=== PATIENT | male | born 1950 | race Caucasian/White ===

== ENCOUNTER → 2020-06-08 | Outpatient (CLI) | payer MEDICARE, OTHER ==
[2020-05-18 15:00] VITALS: BP 155/72
[~2020-06-08] MED LIST: ASPI81TA59 PO; ATOR80TA72 PO; GABA300C18 PO; GABA600T7 PO; METF10007 PO; METF500T16 PO; METO-239 PO; METO-247 PO; MULT-245 PO; RAMI5CAP50 PO
[2020-06-08 13:44] LABS: ALBUMIN 3.6 g/dL (3.4-5.0); DIRECT BILIRUBIN 0.3 mg/dL (0.0-0.2); TOTAL BILIRUBIN 0.6 mg/dL (0.2-1.0); TOTAL PROTEIN 7.3 g/dL (6.4-8.2)
== END ==
LOC: SURGPAT 12:39
PROVIDERS: ATTEND Surgery
DX: Z01.818 Encounter for other preprocedural examination (principal); K80.20 Calculus of gallbladder without cholecystitis without obstruction; Z20.828 Contact with and (suspected) exposure to other viral communicable diseases
CPT/HCPCS: 80076; U0003

== ENCOUNTER 2020-06-15 09:11 | Day surgery (SDC) | payer MEDICARE, OTHER ==
[~2020-06-15] VITALS: Ht 180.3 cm; Wt 101.0 kg
[~2020-06-15 09:11] MED LIST changes: +HYDROmorphone 2 MG/ML VIAL IV PRN; +IV RINGERS,LACTATED 1000ML 1,000 ML IV SCH; +LIDOCAINE 1% PF 2 ML VIAL. ID PRN; +MORPHINE SULFATE 2 MG/ML VIAL. IV PRN; +ONDANSETRON PF 4 MG/2 ML VIAL. IV PRN; +PROCHLORPERAZINE 10 MG/2 ML VIAL. IV PRN; +fentaNYL PF VIAL 100 MCG/2 ML VIAL IV PRN
[2020-06-15] MEDS ORDERED: RAMI5CAP50 PO (09:30)
[2020-06-15 09:47] LABS: BASO % 1 % (0-3); EOS # 0.2 x10^3/uL (0.0-0.7); EOS % 2 % (0-3); HEMATOCRIT 37.8 % (39.0-53.0); HEMOGLOBIN 12.6 g/dL (13.0-17.5); LYMPH # 1.6 x10^3/uL (1.0-4.8); LYMPH % 19 % (24-48); MEAN CORPUSCULAR HEMOGLOBIN 31 pg (25-35); MEAN CORPUSCULAR HGB CONC 33 g/dL (31-37); MEAN CORPUSCULAR VOLUME 94 fL (79-100); MONO # 0.8 x10^3/uL (0.0-1.1); MONO % 9 % (0-9); NEUT # 5.8 x10^3/uL (1.8-7.7); NEUT % 69 % (31-73); PLATELET COUNT 208 x10^3/uL (140-400); RED BLOOD COUNT 4.02 x10^6/uL (4.30-5.70); RED CELL DISTRIBUTION WIDTH 15.1 % (11.5-14.5); WHITE BLOOD COUNT 8.5 x10^3/uL (4.0-11.0)
[2020-06-15] MEDS: INSULIN LISPRO 100 UNIT/ML 3ML VIAL for OP,RR ONLY. SQ PRN ×2 (09:48→11:51)
[2020-06-15 09:53] LABS: POTASSIUM 4.2 mmol/L (3.5-5.1)
[2020-06-15] MEDS ORDERED: ROCURONIUM 50 MG/5 ML VIAL. ONE (11:19)
[2020-06-15] MEDS ORDERED: fentaNYL PF VIAL 250 MCG/5 ML VIAL ONE (11:19)
[2020-06-15] MEDS ORDERED: INSULIN LISPRO 100 UNIT/ML 3ML VIAL for OP,RR ONLY. SQ ONE ×2 (12:00)
[2020-06-15] MEDS ORDERED: PROPOFOL 10 MG/ML (20ML) VIAL. IV ONE (12:11)
[2020-06-15] MEDS ORDERED: LIDOCAINE 2% PF 5 ML VIAL. ONE (12:11)
[2020-06-15] MEDS ORDERED: ONDANSETRON PF 4 MG/2 ML VIAL. ONE (12:11)
[2020-06-15] MEDS ORDERED: DEXAMETHASONE SOD PHOS 4 MG/ML VIAL ONE (12:11)
[2020-06-15] MEDS ORDERED: SEVOFLURANE > 120 MINUTES. IH ONE (12:11)
[2020-06-15] MEDS ORDERED: BUPIVACAINE MPF 0.5% 30 ML VIAL. ONE (12:20)
[2020-06-15] MEDS ORDERED: IOHEXOL 300 MG/ML 50 ML VIAL. ONE (12:20)
[2020-06-15] MEDS ORDERED: SURGICEL HEMOSTAT 4X8 EACH. ONE (12:20)
[2020-06-15] MEDS ORDERED: 0.9 % SODIUM CHLORIDE 20 ML VIAL. IJ ONE (12:32)
[2020-06-15] MEDS ORDERED: GLYCOPYRROLATE 1 MG/5 ML VIAL. ONE (12:47)
[2020-06-15] MEDS ORDERED: NEOSTIGMINE METHYLSULFATE 5 MG/5 ML SYRINGE. ONE (12:57)
[2020-06-15] MEDS ORDERED: ROCURONIUM 100 MG/10 ML VIAL. ONE (13:09)
[2020-06-15] MEDS ORDERED: VASOPRESSIN 20 UNIT/ML VIAL. ONE (13:28)
--- NOTE | 2020-06-15 14:13 | RAD ---
EXAM: INTRAOPERATIVE CHOLANGIOGRAM. HISTORY: Gallbladder disease. Intraoperative cholangiogram with cholecystectomy. COMPARISON: None. FINDINGS: Poor fluoroscopic images are obtained intraoperatively during injection of the cystic duct remnant after cholecystectomy. There are no filling defects to suggest retained stones. The common duct is not dilated. Fluoroscopy time 46 seconds. IMPRESSION: 1. No evidence of retained stones. Electronically signed by: Tianna Ochoa MD (06/15/2020 2:11 PM) [id number]
[2020-06-15] MEDS ORDERED: SUGAMMADEX SODIUM 200 MG/2 ML VIAL. IVP ONE (14:30)
--- NOTE | 2020-06-15 14:30 | PDOC4 ---
Operative Note Operative Note Operative Note: Preoperative Diagnosis: Calculus cholecystitis, abnormal liver testing Postoperative Diagnosis: Same Procedure: Laparoscopic cholecystectomy with intraoperative cholangiogram, Marcelino- Cut liver biopsy Surgeons: Kamaljit Shoemaker Custom: Duncan VIVEROS Anesthesia: Gen. Estimated Blood Loss: 100 mL Specimen: Gallbladder, liver biopsy to pathology Drains: None Complications: None Indications: The patient is a 70 year old male who was previously admitted with abnormal liver testing and gallstones. Surgical treatment was offered by means of a laparoscopic cholecystectomy. The risks of surgery were discussed which include bleeding, infection, bile duct injury, bile leak, pain, the potential for additional surgeries or procedures. The patient understands and would like to proceed. Description: The patient was taken to the operating room and laid supine on the operating table. General anesthesia was performed. The abdomen was prepped with ChloraPrep and draped in a standard surgical fashion. A small infraumbilical incision was made with a scalpel. The Veress needle was then inserted and a pneumoperitoneum was then created. A 5 mm trocar was then inserted and the laparoscope was introduced. In the upper midabdomen a 5 mm trocar was inserted and in the right upper quadrant one 2.3 mm mini lap grasper and one 5 mm trocar were inserted. With a Marcelino-cut needle two separate biopsies were taken from the right lobe of the liver. The specimens were sent to pathology. The gallbladder was retracted cephalad. The cystic duct was dissected free from surrounding tissues. One clip was placed on the duct near the gallbladder junction. An opening was made in the duct and a cholang iocatheter placed within and secured with a clip. Using contrast dye and fluoroscopy an intraoperative cholangiogram was performed that appeared unremarkable. The clip and catheter were then withdrawn. Three clips were placed on the cystic duct and it was divided. The cystic artery was then identified, dissected free, doubly clipped and divided as well. The gallbladder was then mobilized away from the liver with cautery. The umbilical 5 millimeter trocar was exchanged for an 11 millimeter trocar. The gallbladder was then placed in an endoscopic bag and extracted at the umbilical trocar site. The fascia there was closed with an 0 Vicryl suture. All blood and irrigation fluid was suctioned and hemostasis was good. The remaining ports were removed and the pneumoperitoneum was relieved. The skin incisions were injected with half percent Marcaine with epinephrine, and all were closed using 4-0 Monocryl suture. Steri-Strips and dressings were then applied. The patient tolerated the procedure well and was sent to the recovery room in stable condition. At the end of the case all counts were correct. PAULA NÚÑEZ MD Jun 15, 2020 14:30
--- NOTE | 2020-06-15 14:33 | DISCH ---
DISCHARGE INSTRUCTIONS Condition on Discharge Condition on Discharge: Stable Activity After Discharge Activity Instructions for Disc: Other, see below (no lifting over 20 lbs X 2 weeks) Diet after Discharge Diet after Discharge: Regular Wound Incision Care Wound/Incision Care: Other, see below (may remove bandaids tomorrow and shower) Follow-Up Follow up with: Dr Núñez in 2 weeks in office, call for appointment [phone] PAULA NÚÑEZ MD Jun 15, 2020 14:33
[2020-06-15] MEDS ORDERED: HYDR-3164 PO (14:58)
[2020-06-15 15:15] VITALS: BP 152/66
[2020-06-15] MEDS ORDERED: HYDROcodone/APAP 5/325MG 1 TAB TABLET PO ONE (15:15)
--- NOTE | 2020-06-20 16:06 | PATHOLOGY ---
[facility] Accession Number: [id number] . 01 Material submitted: . PART A: gallbladder - GALLBLADDER PART B: liver - LIVER BIOPSY . 01 Clinical history: . GALLSTONES, MILD JUANDICE, ELEVATED LIVER TESTING . 02 Diagnosis: A. Gallbladder, laparoscopic cholecystectomy: - Cholelithiasis. - Chronic cholecystitis. . B. Liver, liver biopsies: - Diagnosis pending intradepartmental consult which will be reported as an addendum. LBQ 06/20/2020 1511 Local . 02 Comment: There is no evidence of malignancy. (JPM/db; 06/20/2020) . 02 Electronically signed: . Wayne Lindsey MD, Pathologist NPI- [id number] . 01 Gross description: . A. The specimen is received in formalin, labeled "Shan Erazo, gallbladder". Received is an intact gallbladder measuring 10.8 x 3.7 x 3.5 cm in greatest dimensions displaying a blue-light serosal surface. Opening the specimen reveals a velvety, bile-stained mucosa with a gallbladder wall thickness of 0.1 cm. Calculi are present displaying a black and spiculated appearance, and no masses or lesions are noted grossly. Credit Support Counselor sections, to include the proximal margin, are submitted in cassette A1. . B. The specimen is received in formalin, labeled "Shan Erazo, liver biopsy". Received are multiple fragments of friable orange-borja tissue measuring 0.5 x 0.5 x 0.1 cm in aggregate dimensions. The specimen is submitted entirely in cassette B1. (CAA; 06/17/2020) QAC/QAC 06/17/2020 1920 Local . 02 Pathologist provided ICD-10: K80.10 . 02 CPT . 994506, [id number] Specimen Comment: A courtesy copy of this report has been sent to [phone], [phone] Specimen Comment: [id number] Specimen Comment: Report sent to / DR SOUSA Performed at: 01 [facility] [address] [facility] [address], [place] [id number] MD Hemant Francisco MD Phone: [phone] Performed at: 02 [facility] [address] [place], [place] [id number] MD Wayne Lindsey MD Phone: [phone]
== END 2020-06-15 16:21 | disposition home or self-care (01) ==
LOC: SURG 09:11
PROVIDERS: ATTEND Surgery
DX: K80.10 Calculus of gallbladder with chronic cholecystitis without obstruction (principal); I10 Essential (primary) hypertension; E78.00 Pure hypercholesterolemia, unspecified; E66.9 Obesity, unspecified; E11.9 Type 2 diabetes mellitus without complications; Z79.899 Other long term (current) drug therapy; Z79.82 Long term (current) use of aspirin; Z79.84 Long term (current) use of oral hypoglycemic drugs; Z98.890 Other specified postprocedural states
CPT/HCPCS: 36415; 47379; 47563; 74300; 80051; 82962; 85025; 88304; 88307; 88312; J0690; J1100; J1815; J2405; J2704; J2710; J3010; J3490; J7030; Q9967